=== PATIENT | female | born 1945 | race African-American/Black ===

== ENCOUNTER 2019-01-21 09:36 | Emergency (ER) | payer MEDICARE, BC ==
[~2019-01-21] VITALS: Ht 172.7 cm; Wt 93.4 kg
[~2019-01-21 09:36] MED LIST: GUAIFENESIN1200 MG PO; NASONEX17 GM NASAL; PROMETHAZINE-C118 M1 ORAL
--- NOTE | 2019-01-21 09:50 | NUR ---
ED Nurse Note: Patient walked into ED from home c/o hypertension at home, upon triage BP was 187/77, patient reports initially at home it was 187/101. patient reports taking her BP medication today: verapamil 360 mg and candesartan 16mg at 0730 AM this morning. patient reports posterior headache off and on for few days. patient is alert awake x4 ambulatory steady gait, breathing unlabored and even, speaking in full senteces.
[2019-01-21 10:01] VITALS: BP 181/76
--- NOTE | 2019-01-21 10:03 | NUR ---
ED Nurse Note: patient reports "I have a lot of things going on in my life at home" and patient reports posterior headache radiating to her frontal headache 8/10 on and off for 5 days. pillow and blankets provided for comfort.
[2019-01-21] MEDS ORDERED: HYDROCHLOROTHIA25 MG ORAL (10:33)
[2019-01-21] MEDS ORDERED: ATACAND HCT 161 EACH ORAL (10:33)
[2019-01-21] MEDS ORDERED: JANUVIA25 MG ORAL (10:33)
[2019-01-21] MEDS ORDERED: VERAPAMIL ER240 M2 PO (10:33)
--- NOTE | 2019-01-21 10:42 | Emergency Room Report ---
History of Present Illness General Chief Complaint: Hypertension Source: Patient Present Illness HPI Disclaimer: Please note that this report is being documented using [employer] technology. This can lead to erroneous entry secondary to incorrect interpretation by the dictating instrument. HPI: 73-year-old female with a history of hypertension on verapamil presents for evaluation of elevated blood pressure readings at home as well as a headache. Patient has had an intermittent headache over the occiput that comes and goes and is not relieved by activity or rest for the past several days. She states she has had elevated blood pressure readings at home into the 180s. She denies any chest pain, shortness of breath, exertional dyspnea, easy fatigability or any other changes in her health otherwise. No recent URI symptoms, vomiting or diarrhea. She has been under a lot of stress lately caring for her sick who has been in and out of the hospital. She was seen by her PMD several weeks ago and prescribed Valium for anxiety attacks which she states she has been experiencing more and more. She believes that her anxiety attacks because her blood pressure elevations and headache. She denies any changes in her vision, vertiginous symptoms, changes in her hearing, changes in coordination, balance, ambulation, strength and sensation. PMH: Hypertension, anxiety PSH: Reviewed Allergies: Certain melons Social Hx: Denies drug or alcohol abuse Allergies: Coded Allergies: MELON (Verified Allergy, Unknown, 02/28/16) Uncoded Allergies: HONEY DEW (Allergy, Unknown, 02/28/16) Patient History Now: No Nursing Documentation-PMH Past Medical History: No History, Except For Hx Hypertension: Yes Hx Diabetes: Yes Review of Systems All Other Systems: negative except mentioned in HPI Physical Exam Vital Signs Date Time Temp Pulse Resp B/P (MAP) Pulse Ox O2 Delivery O2 Flow Rate FiO2 01/21/19 09:41 98.1 71 20 185/77 (113) 96 Room Air General: Awake and alert, no acute distress HEENT: NC/AT. EOMI. Cardiovascular: RRR. S1 and S2 normal. No murmur appreciated Resp: Normal work of breathing. No cough, wheezing or crackles appreciated Abdomen: Abdomen is soft, nondistended. Nontender Skin: Intact. No abrasions, laceration or rash over the exposed skin MSK: Normal tone and bulk. Moving all extremities. No obvious deformity. Neuro: Awake and alert. Mentating appropriately. Medical Decision Making Diagnostic Impression: Primary Impression: Anxiety Additional Impression: Hypertension ER Course 73-year-old female with a history of hypertension presents for evaluation of abnormal blood pressure readings taken at home as well as a headache. Headache is almost completely resolved now states it comes and goes with her anxiety attacks and with elevated blood pressure readings. Her pressures already coming down from triage into the 180s down into the 150s. Otherwise, she is asymptomatic. Will check screening labs to rule out endorgan dysfunction secondary to elevated blood pressures however the patient does not appear to be in any distress clinically. She is requesting her home prescription dose of Valium which is 5 mg. She has been having increased anxiety attacks lately over caring for her sick . Reevaluation Time: 11:31 Last Vital Signs Date Time Temp Pulse Resp B/P (MAP) Pulse Ox O2 Delivery O2 Flow Rate FiO2 01/21/19 10:02 64 13 Room Air 01/21/19 10:01 98.1 181/76 100 Reevaluation Impression Blood pressures continue to improve without medication. She reports feeling much better after receiving the Valium. Pressures are now in the 130s systolic. Believe she is safe for outpatient follow-up. Will not change her medication regimen at this time. I encouraged her to follow-up with her PMD to discuss her elevated blood pressures as well as her anxiety symptoms of late. I also discussed reasons to return to the emergency department. She understands and agrees with the treatment plan will be discharged home. Disposition: HOME, SELF-CARE Condition: Improved Jovon Neely MD Jan 21, 2019 10:42
[2019-01-21 11:15] LABS: ANION GAP 5 mmol/L (5-15); BLOOD UREA NITROGEN 18 mg/dL (7-18); CALCIUM 8.8 MG/DL (8.5-10.1); CARBON DIOXIDE 33 MMOL/L (21-32); CHLORIDE 100 MMOL/L (98-107); CREATININE 1.2 MG/DL (0.55-1.30); POTASSIUM 3.2 MMOL/L (3.5-5.1); SODIUM 138 MMOL/L (136-145)
[2019-01-21 11:40] VITALS: BP 137/68
--- NOTE | 2019-01-21 11:45 | NUR ---
ER DISCHARGE NOTE: Patient is cleared to be discharged per ERMD DR RICHARD, pt is aox4, on room air, with stable vital signs. pt was given dc instructions, pt was able to verbalize understanding, pt id band and iv site removed without complications. pt is able to ambulate with steady gait. pt took all belongings.
[2019-01-21 11:52] VITALS: BP 137/68
== END 2019-01-21 11:45 | disposition home or self-care (01) ==
LOC: EMR 11:35
DX: I10 Essential (primary) hypertension (principal); F41.9 Anxiety disorder, unspecified; E11.9 Type 2 diabetes mellitus without complications
CPT/HCPCS: 36415; 80048; 99283

== ENCOUNTER 2020-01-30 12:54 | Inpatient (IN) | payer MEDICARE, BC ==
[~2020-01-30] VITALS: Ht 172.7 cm; Wt 93.9 kg
[~2020-01-30 12:54] MED LIST changes: +ATACAND HCT 161 EACH ORAL; +FAMOTIDINE20 MG ORAL; +HYDROCHLOROTHIA25 MG ORAL; +JANUVIA25 MG ORAL; +ONDANSETRON ODT4 MG BC; +VERAPAMIL ER240 M2 PO
[2020-01-30 13:06] VITALS: BP 136/74
--- NOTE | 2020-01-30 13:06 | NUR ---
ED Nurse Note: Pt walked in to ED from home c/o flactuating blood pressure x5 days. Pt also reports light headache. Pt is compliant with her BP meds. Denies CP. AAOx4, verbally responsive. No SOB, on room air. Pt placed on vehicle monitor technician. ERPA at bedside.
--- NOTE | 2020-01-30 13:25 | NUR ---
ED Nurse Note: Xray at bedside.
--- NOTE | 2020-01-30 13:33 | NUR ---
ED Nurse Note: IV line established. Blood sent to lab.
[2020-01-30 13:47] LABS: BASOPHILS % (AUTO) 1.2 % (0.0-2.0); HEMATOCRIT 44.5 % (37.0-47.0); HEMOGLOBIN 14.1 G/DL (12.0-16.0); LYMPHOCYTES % (AUTO) 48.9 % (20.0-45.0); MEAN CORPUSCULAR VOLUME 97 FL (80-99); MONOCYTES % (AUTO) 6.2 % (1.0-10.0); NEUTROPHILS % (AUTO) 42.7 % (45.0-75.0); PLATELET COUNT 186 K/UL (150-450); RED BLOOD COUNT 4.61 M/UL (4.20-5.40); RED CELL DISTRIBUTION WIDTH 14.4 % (11.6-14.8)
--- NOTE | 2020-01-30 13:54 | Emergency Room Report ---
History of Present Illness General Chief Complaint: General Complaint Source: Patient Present Illness HPI 74 YO female presents to the ED c/o 08/18 in severity THOMPSON that does not respond to OTC Tylenol in addition to large swings in her BP and having intermittent swelling in her feet x "almost a week". Pt. reports some neck tightness as well. She denies sudden onset of THOMPSON. She denies fevers, chills, photophobia or joint pain. She reports knowingly having a low heart rate in the 50's. She denies syncope or weakness. She denies dizziness. She reports taking htn meds some of which she cant recall the name of at this time. She does recall Bystolic and HCTZ. Pt. also reports recently DC from therapy which she was going to once weekly due to change in appt. day and time. Pt. describes being very reliant on her routines and deviation does cause her some turmoil. She denies depression, CP, palpitations or SOB. Pt. denies cough. She describes being competent in ability to correctly check her BP at home with an automatic monitor and arm cuff. Allergies: Coded Allergies: MELON (Verified Allergy, Unknown, 02/28/16) Uncoded Allergies: HONEY DEW (Allergy, Unknown, 02/28/16) COVID-19 Screening Contact w/high risk pt: No Experienced COVID-19 symptoms?: No COVID-19 Testing performed MORGUE TECHNICIAN: No Patient History Past Medical History: see triage record Past Surgical History: none Pertinent Family History: none Now: No Reviewed Nursing Documentation: PMH: Agreed; PSxH: Agreed Nursing Documentation-PMH Past Medical History: No History, Except For Hx Hypertension: Yes Hx Diabetes: Yes Review of Systems All Other Systems: negative except mentioned in HPI Physical Exam Vital Signs Date Time Temp Pulse Resp B/P (MAP) Pulse Ox O2 Delivery O2 Flow Rate FiO2 01/30/20 12:59 97.5 50 17 136/74 (94) 97 Room Air Sp02 EP Interpretation: reviewed, normal General Appearance: no apparent distress, alert, GCS 15, non-toxic Head: normocephalic, atraumatic Eyes: bilateral eye normal inspection, bilateral eye PERRL, bilateral eye other - no photophobia ENT: hearing grossly normal, normal voice Neck: full range of motion, tender lateral - right side. FROM Respiratory: chest non-tender, lungs clear, normal breath sounds, speaking full sentences Cardiovascular #1: regular rate, rhythm, edema - non pitting edema 1+ Gastrointestinal: normal bowel sounds, non tender, soft Rectal: deferred Genitourinary: normal inspection Musculoskeletal: back normal, normal range of motion, gait/station normal, non- tender Neurologic: alert, motor strength/tone normal, oriented x3, sensory intact, responsive, speech normal, normal gait, grossly normal, no focal defects Psychiatric: judgement/insight normal Lymphatic: no adenopathy Medical Decision Making PA Attestation Dr. Banks Is my supervising Physician whom patient management has been discussed with. Diagnostic Impression: Primary Impression: Hypokalemia Additional Impression: Fluctuating blood pressure ER Course 74 YO female presents to the ED c/o 08/18 in severity THOMPSON that does not respond to OTC Tylenol in addition to large swings in her BP and having intermittent swelling in her feet x "almost a week". Pt. reports some neck tightness as well. She denies sudden onset of THOMPSON. She denies fevers, chills, photophobia or joint pain. She reports knowingly having a low heart rate in the 50's. She denies syncope or weakness. She denies dizziness. She reports taking HTN meds some of which she cant recall the name of at this time. She does recall Bystolic and HCT Z. Pt. also reports recently DC from therapy which she was going to once weekly due to change in appt. day and time. Pt. describes being very reliant on her routines and deviation does cause her some turmoil. She denies depression, CP, palpitations or SOB. Pt. denies cough. She describes being competent in ability to correctly check her BP at home with an automatic monitor and arm cuff. dx considered but are not limited to hypertensive urgency/emergency, aortic dissection,symptomatic bradycardia, CVA,ICH, meningitis, CHF, eectrolyte imbalance, or renal failure, just to name a few. Vital signs: Pt. is Kane cardic otherwise remaining VS are WNL, pt. is afebrile H&PE are most consistent with hx of elevated and fluctuating BP readings at home with some associated symptoms such as LE edema and progressive constant THOMPSON. No focal neurological deficits.Pt. is NAD , non-Toxic in appearance. No SOB, lugs are CTA, no hx of CHF. ORDERS: -CBC: WNL -CMP: Potassium of 2.9 -Troponin: 0.00 WNL - EK bpm bradycardia. ED INTERVENTIONS: -60 MEq KCl PO DISPOSITION: at this time pt. will be admitted to Dr. Victoria for Hypokalemia. Dr. Victoria agreed to admit the pt. and to continue pt. care management. Labs Test 01/30/20 13:33 01/30/20 14:25 White Blood Count 6.0 K/UL (4.8-10.8) Red Blood Count 4.61 M/UL (4.20-5.40) Hemoglobin 14.1 G/DL (12.0-16.0) Hematocrit 44.5 % (37.0-47.0) Mean Corpuscular Volume 97 FL (80-99) Mean Corpuscular Hemoglobin 30.6 PG (27.0-31.0) Mean Corpuscular Hemoglobin Concent 31.7 G/DL (32.0-36.0) Red Cell Distribution Width 14.4 % (11.6-14.8) Platelet Count 186 K/UL (150-450) Mean Platelet Volume 7.7 FL (6.5-10.1) Neutrophils (%) (Auto) 42.7 % (45.0-75.0) Lymphocytes (%) (Auto) 48.9 % (20.0-45.0) Monocytes (%) (Auto) 6.2 % (1.0-10.0) Eosinophils (%) (Auto) 1.0 % (0.0-3.0) Basophils (%) (Auto) 1.2 % (0.0-2.0) Sodium Level 141 MMOL/L (136-145) Potassium Level 2.9 MMOL/L (3.5-5.1) Chloride Level 104 MMOL/L (98-107) Carbon Dioxide Level 30 MMOL/L (21-32) Anion Gap 7 mmol/L (5-15) Blood Urea Nitrogen 19 mg/dL (7-18) Creatinine 1.3 MG/DL (0.55-1.30) Estimat Glomerular Filtration Rate 48.6 mL/min (>60) Glucose Level 133 MG/DL (74-106) Calcium Level 8.9 MG/DL (8.5-10.1) Total Bilirubin 0.4 MG/DL (0.2-1.0) Aspartate Amino Transf (AST/SGOT) 24 U/L (15-37) Alanine Aminotransferase (ALT/SGPT) 33 U/L (12-78) Alkaline Phosphatase 69 U/L (46-116) Troponin I 0.000 ng/mL (0.000-0.056) Total Protein 7.6 G/DL (6.4-8.2) Albumin 3.8 G/DL (3.4-5.0) Globulin 3.8 g/dL Albumin/Globulin Ratio 1.0 (1.0-2.7) Urine Color Pale yellow Urine Appearance Clear Urine pH 7 (4.5-8.0) Urine Specific [place] 1.010 (1.005-1.035) Urine Protein Negative (NEGATIVE) Urine Glucose (UA) Negative (NEGATIVE) Urine Ketones Negative (NEGATIVE) Urine Blood 1+ (NEGATIVE) Urine Nitrite Negative (NEGATIVE) Urine Bilirubin Negative (NEGATIVE) Urine Urobilinogen Normal MG/DL (0.0-1.0) Urine Leukocyte Esterase Negative (NEGATIVE) Urine RBC 2-4 /HPF (0 - 2) Urine WBC 0-2 /HPF (0 - 2) Urine Squamous Epithelial Cells Few /LPF (NONE/OCC) Urine Bacteria Few /HPF (NONE) EKG Diagnostic Results Troponin ordered: Yes When was troponin ordered?: Jan 30, 2020 EKG Time: 13:19 Rate: bradycardiac - 48 bpm Rhythm: NSR ST Segments: no acute changes Other Impression This Interpretation was scribed by RAMANDEEP Alegria. ASA given to the pt in ED: No Chest X-Ray Diagnostic Results Chest X-Ray Diagnostic Results : Chest X-Ray Ordered: Yes EP Interpretation: Yes RAMANDEEP Xray: Interpretation reviewed, by supervising MD, and agrees with findings. Interpretation: no consolidation, no effusion, no pneumothorax, no acute cardiopulmonary disease Impression: No acute disease Electronically Signed by: Nataly Alegria PA-C Last Vital Signs Date Time Temp Pulse Resp B/P (MAP) Pulse Ox O2 Delivery O2 Flow Rate FiO2 01/30/20 13:06 50 17 Room Air 01/30/20 13:06 97.5 136/74 97 Status: unchanged Disposition: ADMITTED INPATIENT Condition: Serious Referrals: Juanito Barton MD (PCP) Nataly Alegria Jan 30, 2020 13:54
[2020-01-30 13:59] LABS: CALCIUM 8.9 MG/DL (8.5-10.1); CREATININE 1.3 MG/DL (0.55-1.30); POTASSIUM 2.9 MMOL/L (3.5-5.1)
[2020-01-30 14:06] LABS: ALBUMIN 3.8 G/DL (3.4-5.0); BILIRUBIN,TOTAL 0.4 MG/DL (0.2-1.0)
--- NOTE | 2020-01-30 14:24 | Diagnostic Imaging Report ---
EXAM: XR Chest, 1 View CLINICAL HISTORY: PAIN TECHNIQUE: Frontal view of the chest. COMPARISON: Chest radiograph on 03/12/2019 FINDINGS: Hardware: None. Lungs/pleura: Normal. No focal consolidation. No pleural effusion or pneumothorax. Heart/mediastinum: Normal. No cardiomegaly. Soft tissues: Unremarkable. Bones: No acute fracture. Upper abdomen: Normal. IMPRESSION: No acute disease identified.
[2020-01-30 14:44] LABS: APPEARANCE,URINE CLEAR; BILIRUBIN, URINE NEGATIVE (NEGATIVE); COLOR,URINE PALE YELLOW; GLUCOSE, URINE (UA) NEGATIVE (NEGATIVE); KETONES,URINE NEGATIVE (NEGATIVE); LEUKOCYTE ESTERASE ,URINE NEGATIVE (NEGATIVE); NITRITE,URINE NEGATIVE (NEGATIVE); PH,URINE 7 (4.5-8.0); PROTEIN,URINE NEGATIVE (NEGATIVE); UROBILINOGEN,URINE NORMAL MG/DL (0.0-1.0)
[2020-01-30] MEDS ORDERED: NORVASC10 MG ORAL (15:53)
[2020-01-30] MEDS ORDERED: PRAVACHOL40 MG ORAL (15:53)
[2020-01-30 16:11] VITALS: BP 142/75
[2020-01-30] MEDS ORDERED: Mylanta II UD 30ml ORAL PRN (16:45)
[2020-01-30] MEDS ORDERED: Milk of Magnesia 30ml Ud ORAL PRN (16:45)
[2020-01-30] MEDS ORDERED: Albuterol/Ipratropium 3ml neb HHN PRN (16:45)
--- NOTE | 2020-01-30 16:57 | History and Physical ---
History of Present Illness General Reason for Hospitalization: General Complaint Present Illness HPI Mrs. Taveras is a 74-year-old female past medical history of hypertension and diabetes mellitus who presents from home for elevated blood pressures and a headache. Patient reports taking her blood pressure this morning after taking her blood pressure medications and noted to be systolic blood pressure of 170. During this time she also had a frontal lobe and occipital lobe headache: Denies any vision changes, ataxia, or neurological deficits. She is also to have a heart rate in the 40s but was asymptomatic and notes that her heart rate typically runs in the 50s to low 60s. Patient sees Dr. Barton as an outpatient. Patient otherwise has been feeling well prior to coming into the ED today. Denies any recent illnesses, sick contacts, travels. No new medications. In the ED, patient hemodynamically stable with no respiratory compromise. Blood pressure in the 130s to 150s. She notes her headache has improved. On telemetry monitoring it was noted that her heart rate has dipped to the 40s, however patient remained asymptomatic. She will be admitted to obs for cardiac monitoring and resolution of headache and elevated blood pressure. Past medical history: Type 2 diabetes and hypertension Family history: Mom and dad with hypertension Surgical history: Left knee surgery Social history: Denies tobacco use, no alcohol use, drug use Allergies: Coded Allergies: MELON (Verified Allergy, Unknown, 02/28/16) Uncoded Allergies: HONEY DEW (Allergy, Unknown, 02/28/16) COVID-19 Screening Contact w/high risk pt: No Experienced COVID-19 symptoms?: No Medication History Scheduled Amlodipine Besylate (Norvasc), 10 MG ORAL DAILY, (Reported) Candesartan/Hydrochlorothiazid 16-12.5 Mg Tab (Atacand Hct 16-12.5 Mg Tab), 1 TAB ORAL DAILY, (Reported) Famotidine* (Pepcid 20mg tablet*), 20 MG ORAL DAILY Guaifenesin (Guaifenesin), 1,200 MG PO Q12HR Hydrochlorothiazide* (Hydrochlorothiazide*), 25 MG ORAL DAILY, (Reported) Mometasone Furoate (Nasonex), 2 SPRAYS NASAL DAILY Ondansetron Odt* (Zofran Odt*), 4 MG BC EVERY 8 HOURS Pravastatin Sodium (Pravachol), 80 MG ORAL BEDTIME, (Reported) Sitagliptin* (Januvia*), 100 MG ORAL DAILY, (Reported) Verapamil Hcl (Verapamil Er), 360 MG PO DAILY, (Reported) Scheduled PRN Codeine/Promethazine Hcl* (Promethazine-Codeine Syrup*), 5 ML ORAL Q6H PRN for For Cough Patient History Healthcare decision maker Resuscitation status Advanced Directive on File Review of Systems Constitutional: Denies: no symptoms, see HPI, chills, sweats, fever, malaise, weakness, other Eye: Denies: no symptoms, see HPI, eye pain, blurred vision, tearing, double vision, nose pain, nose congestion, acuity changes, discharge, other ENT: Denies: no symptoms, see HPI, ear pain, ear discharge, nose pain, nose congestion, throat pain, throat swelling, mouth pain, hearing loss, nasal discharge, other Respiratory: Denies: no symptoms, see HPI, cough, orthopnea, shortness of breath, stridor, wheezing, SORIA, sputum, other Cardiovascular: Denies: no symptoms, see HPI, chest pain, edema, palpitations, syncope, PND, other Gastrointestinal: Denies: no symptoms, see HPI, abdominal pain, constipation, diarrhea, nausea, vomiting, melena, hematemesis, other Genitourinary: Denies: no symptoms, see HPI, discharge, dysuria, frequency, hematuria, pain, retention, incontinence, urgency, vag bleed/dc, other Musculoskeletal: Denies: no symptoms, see HPI, back pain, gout, joint pain, joint swelling, muscle pain, muscle stiffness, other Skin: Denies: no symptoms, see HPI, rash, change in color, change in hair/nails, dryness, lesions, other Psychiatric: Denies: no symptoms, see HPI, prior hx, anxiety, depressed feelings, emotional problems, SI, HI, hallucinations, other Neurological: Reports: headache; Denies: no symptoms, see HPI, numbness, paresthesia, seizure, tingling, tremors, focal weakness, syncope, dizziness, other Endocrine: Denies: no symptoms, see HPI, excessive sweating, flushing, intolerance to temperature, increased thirst, increased urine, unexplained weight loss, other Hematologic/Lymphatic: Denies: no symptoms, see HPI, anemia, blood clots, easy bleeding, easy bruising, swollen glands, diathesis, other Physical Exam General Appearance: no apparent distress, alert, obese, alert oriented x3 HEENT: normocephalic, atraumatic, PERRL Neck: non-tender, normal alignment, normal inspection Respiratory/Chest: lungs clear, normal breath sounds, respiratory distress Cardiovascular/Chest: normal rate, no JVD, bradycardia Abdomen: normal bowel sounds, non tender, soft Extremities: normal range of motion, non-tender Skin Exam: normal pigmentation, warm/dry Neurologic: possum trapper II-XII grossly normal, no motor/sensory deficits, oriented x 3 Musculoskeletal: normal muscle bulk, no effusion Last 24 Hour Vital Signs Date Time Temp Pulse Resp B/P (MAP) Pulse Ox O2 Delivery O2 Flow Rate FiO2 01/30/20 16:11 97.5 52 19 142/75 100 Room Air 01/30/20 13:06 50 17 Room Air 01/30/20 13:06 97.5 50 17 136/74 97 Room Air 01/30/20 12:59 97.5 50 17 136/74 (94) 97 Room Air Laboratory Tests Test 01/30/20 13:33 01/30/20 14:25 White Blood Count 6.0 K/UL (4.8-10.8) Red Blood Count 4.61 M/UL (4.20-5.40) Hemoglobin 14.1 G/DL (12.0-16.0) Hematocrit 44.5 % (37.0-47.0) Mean Corpuscular Volume 97 FL (80-99) Mean Corpuscular Hemoglobin 30.6 PG (27.0-31.0) Mean Corpuscular Hemoglobin Concent 31.7 G/DL (32.0-36.0) L Red Cell Distribution Width 14.4 % (11.6-14.8) Platelet Count 186 K/UL (150-450) Mean Platelet Volume 7.7 FL (6.5-10.1) Neutrophils (%) (Auto) 42.7 % (45.0-75.0) L Lymphocytes (%) (Auto) 48.9 % (20.0-45.0) H Monocytes (%) (Auto) 6.2 % (1.0-10.0) Eosinophils (%) (Auto) 1.0 % (0.0-3.0) Basophils (%) (Auto) 1.2 % (0.0-2.0) Sodium Level 141 MMOL/L (136-145) Potassium Level 2.9 MMOL/L (3.5-5.1) L Chloride Level 104 MMOL/L (98-107) Carbon Dioxide Level 30 MMOL/L (21-32) Anion Gap 7 mmol/L (5-15) Blood Urea Nitrogen 19 mg/dL (7-18) H Creatinine 1.3 MG/DL (0.55-1.30) Estimat Glomerular Filtration Rate 48.6 mL/min (>60) Glucose Level 133 MG/DL (74-106) H Calcium Level 8.9 MG/DL (8.5-10.1) Total Bilirubin 0.4 MG/DL (0.2-1.0) Aspartate Amino Transf (AST/SGOT) 24 U/L (15-37) Alanine Aminotransferase (ALT/SGPT) 33 U/L (12-78) Alkaline Phosphatase 69 U/L (46-116) Troponin I 0.000 ng/mL (0.000-0.056) Total Protein 7.6 G/DL (6.4-8.2) Albumin 3.8 G/DL (3.4-5.0) Globulin 3.8 g/dL Albumin/Globulin Ratio 1.0 (1.0-2.7) Urine Color Pale yellow Urine Appearance Clear Urine pH 7 (4.5-8.0) Urine Specific [place] 1.010 (1.005-1.035) Urine Protein Negative (NEGATIVE) Urine Glucose (UA) Negative (NEGATIVE) Urine Ketones Negative (NEGATIVE) Urine Blood 1+ (NEGATIVE) H Urine Nitrite Negative (NEGATIVE) Urine Bilirubin Negative (NEGATIVE) Urine Urobilinogen Normal MG/DL (0.0-1.0) Urine Leukocyte Esterase Negative (NEGATIVE) Urine RBC 2-4 /HPF (0 - 2) H Urine WBC 0-2 /HPF (0 - 2) Urine Squamous Epithelial Cells Few /LPF (NONE/OCC) Urine Bacteria Few /HPF (NONE) Height (Feet): 5 Height (Inches): 8.00 Weight (Pounds): 207 Assessment/Plan Assessment/Plan: Mrs. Taveras is a 74-year-old female past medical history of hypertension diabetes mellitus presents for elevated blood pressure and headache. A: #Headache secondary to elevated blood pressure #Sinus bradycardiaasymptomatic #Essential hypertension #Hypokalemia #Type 2 diabetes mellitus #Hyperglycemia #Hyperlipidemia #Obesity class I P: Hemodynamically stable, no respiratory compromise Saturating well on room air Continue home amlodipine 10 mg daily but will hold HCTZ given hypokalemia Hydralazine 25 mg every 4 hours as needed for systolic blood pressure greater than 160 Tylenol for headache Replete potassium, may need to titrate down on her hydrochlorothiazide on discharge Chest x-ray: No acute cardiopulmonary disease Monitor on telemetry EKG: Sinus bradycardia, no acute ST changes, no intraventricular conduction abnormalities IVF Mild insulin sliding scale Code: Full GI: None Fluids: LR Diet: Low-sodium DVT prophylaxis: Lovenox 40 mg use Dispo: Likely discharge tomorrow Time spent on this encounter was 71 minutes which included 41 minutes of counseling and care coordination. I discussed with the nurse at bedside. Time of note may not reflect time patient was seen. Stephen Victoria D.O Jan 30, 2020 16:57
[2020-01-30] MEDS ORDERED: HydrALAZINE 25mg tab ORAL PRN (17:00)
--- NOTE | 2020-01-30 17:02 | General Progress Note ---
Advance Care Planning Advance Care Planning Advance Care Planning [facility] An independent Hospitalist group, where every patient is our [facility] Internal Medicine Hospitalist Advanced Care Planning Note Please contact us at Date of Discussion: A [id number] discussion with the patient regarding the patient's advanced care planning took place during this hospitalization on the above date. The discussion included the explanation and discussion of advance directives and associated forms/documents, as well as the patient's current code status. We also discussed at length the patient's medical conditions (both acute and chroni c), general prognosis, treatment options, and goals of care. The following summarizes the discussion: Advance Care Planning/Goals of Care: - Will attempt to fill out an AD and/or POLST with the patient prior to discharge, if not already completed - Continue current evaluation and management of any acute and chronic medical issues - Will continue to support the patient/family - Will continue to discuss both short- and long-term goals of care DPOA-HC/Surrogate Decision Maker: None currently appointed Code Status: Full Code Advanced Care Planning Forms/Documents Completed: Deferred until later encounter/visit A total of 18 minutes was spent on this discussion, including counseling, answering questions, and completing, if any, pertinent advanced care planning forms/documents. Time of note may not reflect time of encounter. Stephen Victoria D.O Jan 30, 2020 17:02
--- NOTE | 2020-01-30 17:22 | NUR ---
ED Nurse Note: Dinner tray provided.
--- NOTE | 2020-01-30 19:06 | NUR ---
HAND-OFF: Report given to Cathie HOLLY.
--- NOTE | 2020-01-30 19:10 | NUR ---
ED Nurse Note: Report received from ELAYNE Jaramillo. NAD noted. She is resting in bed, connected to cardiac catheterization technician.
[2020-01-30 19:22] VITALS: BP 145/66
--- NOTE | 2020-01-30 19:23 | NUR ---
ED Nurse Note: Patient states she has mild pressure like headache at this time. MD notified.
--- NOTE | 2020-01-30 20:00 | NUR ---
ED Nurse Note: Report given to ELAYNE Szymanski.
--- NOTE | 2020-01-30 20:15 | NUR ---
ED Nurse Note: Patient transferred to tele unit at this time. She is aaox4, verbally responsive. Patient IV is intact. Patient ambulated to tele bed w/o complication. She took all belongings with her. Vitals stable for patient. NAD and breathing normal at time of transfer.
[2020-01-30] MEDS ORDERED: Enoxaparin 40mg Inj SUBQ SCH (21:00)
[2020-01-30] MEDS: LR 1000ml 1,000 ML IV SCH (21:08)
--- NOTE | 2020-01-31 03:12 | NUR ---
NURSE NOTES: Pt received from ELAYNE Brand. Pt is resting comfortably in bed and c/o headache; will administer medications as ordered. Pt admitting VS T97.9 P56 R18 BP156/66 O2 99%. Pt is on cardiac monitoring SB and MD aware; pt c/o headache. Pt is breathing unlabored on RA and asymptomatic. Pt is A/Ox4 and ambulatory. Pt has RAC 22G SL patent with skin dry and intact. Bed is locked in lowest position with call light within reach. Will continue to monitor.
[2020-01-31 04:00] VITALS: BP 101/63
[2020-01-31] MEDS: LR 1000ml 1,000 ML IV SCH (05:30)
--- NOTE | 2020-01-31 07:40 | NUR ---
NURSE NOTES:handoff received from ELAYNE Ford. Patient received awake and alert and able to make needs known, no acute signs of distress noted, patient is on room air, IV site is clean dry and intact running prescribed fluids at 100ML/HR. Patient is on standard precautions. Bed in the low and locked position with call light within reach, informed patient to use call light for assistance and not to get out of bed alone. Will follow plan of care.
--- NOTE | 2020-01-31 07:58 | NUR ---
NURSE HAND-OFF REPORT: Important Events on Shift:[] Patient Status: [] Diet: [] Pending Orders: [] Pending Results/Labs:[] Pending MD notification:[] Latest Vital Signs: Temperature 98.1 , Pulse 60 , B/P 101 /63 , Respiratory Rate 20 , O2 SAT 98 , Room Air, O2 Flow Rate . Vital Sign Comment: [] EKG Rhythm: Sinus Bradycardia Rhythm change?: N Notified?: - Response: Flores Fall Score: 20 Fall Risk: Low Risk Safety Measures: Call light Within Reach, Bed Alarm Zone 1, Side Rails Side Rails x2, Bed position Low and Locked. Fall Precautions: Yellow Socks Patient Fall Education Report given to []. Addendum: 01/31/20 at 0759 by Logan Lacey RN NURSE HAND-OFF REPORT: Important Events on Shift:Pt admitted to [facility] Patient Status: Stable Diet: Low Sodium Pending Orders: Pending Results/Labs:AM Labs Pending MD notification: Latest Vital Signs: Temperature 98.1 , Pulse 60 , B/P 101 /63 , Respiratory Rate 20 , O2 SAT 98 , Room Air, O2 Flow Rate . Vital Sign Comment: VSS EKG Rhythm: Sinus Bradycardia Rhythm change?: N Notified?: - MD Response: Latest Flores Fall Score: 20 Fall Risk: Low Risk Safety Measures: Call light Within Reach, Bed Alarm Zone 1, Side Rails Side Rails x2, Bed position Low and Locked. Fall Precautions: Yellow Socks Patient Fall Education Report given to ELAYNE Oshea.
[2020-01-31 08:00] VITALS: BP 135/62
[2020-01-31 08:11] LABS: CALCIUM 8.6 MG/DL (8.5-10.1); CREATININE 1.2 MG/DL (0.55-1.30); POTASSIUM 3.3 MMOL/L (3.5-5.1)
[2020-01-31 09:09] VITALS: BP 135/62
[2020-01-31] MEDS ORDERED: HYDROCHLOROTH12.5 MG ORAL (09:10)
--- NOTE | 2020-01-31 09:11 | Discharge Instructions ---
Discharge Instructions Discharge Instructions Diet: 2 GM sodium (low sodium) Resume Normal Activity?: Yes Activity: resume normal activities Follow Up Orders Follow-up with Dr. Barton this week and repeat BMP for potassium levels, decrease hydrochlorothiazide to 12.5 from 25 mg daily For Congestive Heart Failure Reminder Report to your physician any weight gain of 5 pounds or more in one week. Stephen Victoria D.O Jan 31, 2020 09:11
--- NOTE | 2020-01-31 09:17 | Discharge Summary ---
Discharge Summary Hospital Course Date of Admission Jan 30, 2020 at 15:24 Date of Discharge Admitting Diagnosis symptomatic bradycardia and hypokalemia [facility] Richelle Young is a 74 year old female who was admitted on Jan 30, 2020 at 15:24 for Symptomatic Bradycardia And Hypokalemia General Appearance: no apparent distress, alert, obese, alert oriented x3 HEENT: normocephalic, atraumatic, PERRL Neck: non-tender, normal alignment, normal inspection Respiratory/Chest: lungs clear, normal breath sounds, respiratory distress Cardiovascular/Chest: normal rate, no JVD, bradycardia Abdomen: normal bowel sounds, non tender, soft Extremities: normal range of motion, non-tender Skin Exam: normal pigmentation, warm/dry Neurologic: medical donation professional II-XII grossly normal, no motor/sensory deficits, oriented x 3 Musculoskeletal: normal muscle bulk, no effusion Hospital Course Mrs. Taveras is a 74-year-old female past medical history of hypertension diabetes mellitus presents for elevated blood pressure and headache. Patient reports frontal lobe and occipital headaches yesterday that coincided with elevated blood pressures in the 170s. Typically her blood pressure runs in the 130s on hydrochlorothiazide, amlodipine, Vasotec per patient. Initial evaluation showed patient with sinus bradycardia and headache with hypokalemia. Blood pressure had improved in the ED to the 130s to the 150s. Patient was monitored overnight in which no acute events occurred. On telemetry patient was found to be bradycardia 40s to 50s, however no symptoms of hemodynamic compromise. Patient reports longstanding history of bradycardia in the 50s. Patient otherwise remained hemodynamically stable without any respiratory compromise. She is medically stable for safe discharge home today. I discussed with her that I will decrease her hydrochlorothiazide from 25 to 12.5 mg daily as likely cause of hypokalemia. She will follow up with Dr. Barton her PCP for further care of her blood pressure. I also recommend to her that she get a cardiology consult for her sinus bradycardia. A: #Headache secondary to elevated blood pressure #Sinus bradycardiaasymptomatic #Essential hypertension #Hypokalemia #Type 2 diabetes mellitus #Hyperglycemia #Hyperlipidemia #Obesity class I P: We will decrease hydrochlorothiazide from 25 to 12.5 mg daily We will continue her home amlodipine, Vasotec Continue her home type 2 diabetes medications Follow-up with Dr. Barton for continued management of her blood pressure, repeat BMP for her hypokalemia that was repleted during this admission, and possible consult for cardiology for her sinus bradycardia Time spent on this encounter was 41 minutes which included 31 minutes of c ounseling and care coordination. I discussed with the nurse at bedside. Time of note may not reflect time patient was seen. Discharge Discharge Vital Signs Last Vital Signs Date Time Temp Pulse Resp B/P (MAP) Pulse Ox O2 Delivery O2 Flow Rate FiO2 01/31/20 09:09 50 135/62 01/31/20 08:55 Room Air 01/31/20 08:00 97.9 20 100 Discharge Disposition Patient was discharged to Discharge Instructions Discharge Instructions Activity: resume normal activities Stephen Victoria D.O Jan 31, 2020 09:17
--- NOTE | 2020-01-31 11:14 | NUR ---
NURSE NOTES:wasted one Potassium as dropped on the floor, pulled another to administer to patient. patient received total of 60MEQ's KCL
--- NOTE | 2020-01-31 11:59 | NUR ---
NURSE NOTES:Patient discharged and wheeled down to entrance where she left with her . Patient left with all belongings and belongings list signed by patient, patient also signed discharge paperwork. Informed patient to follow up with primary physician within 7 days of discharge. Printed out information on bradycardia, hypokalemia and antihypertensive medication. Instructed patient to return to hospital if she feels dizzy, weak, faints or has chest pain or trouble breathing, patient verbalized understanding. Also explained importance of monitoring blood pressure at home, states she has a BP machine at home that she uses. IV site removed, no bleeding or hematoma noted.
--- NOTE | 2020-01-31 14:11 | NUR ---
CASE MANAGEMENT:REVIEW 01/30/20 74 YR OLD FEMALE PRESENTED TO ER CC; BLOOD PRESSURE UP AND DOWN X5 DAYS. HEADACHE SI: HYPOKALEMIA. FLUCTUATING BLOOD PRESSURE 97.5 50 17 136/74 97% ON RA K-2.9 IS: KCL PO CXR : TO TELEMETRY IS: K-DUR Q1HRS X3 PEPCID PO QD NORVASC PO QD LOVENOX SQ Q24 IVF LR@100/HR 01/31/20 DISCHARGED HOME
--- NOTE | 2020-01-31 20:37 | Cardiology Report ---
APPROVED REPORT EKG Measurement Heart [id number] MS [id number] <Conclusion> Sinus bradycardia Nonspecific T wave abnormality Abnormal ECG
== END 2020-01-31 11:55 | disposition home or self-care (01) | DRG 641 ==
LOC: EMR 13:32 → 2E 15:24 → EDBEDREQ 15:26
DX: E87.6 Hypokalemia (principal); R00.1 Bradycardia, unspecified; R51.9 Headache, unspecified; E11.65 Type 2 diabetes mellitus with hyperglycemia; E78.5 Hyperlipidemia, unspecified; E66.9 Obesity, unspecified; I10 Essential (primary) hypertension; Z68.31 Body mass index [BMI] 31.0-31.9, adult
CPT/HCPCS: 36415; 71045; 80048; 80053; 81003; 83036; 83735; 84439; 84443; 84484; 85025; 93005; 99285; J8499